=== PATIENT | male | born 1995 | race Caucasian/White ===

== ENCOUNTER 2019-10-04 23:24 | Emergency (ER) | payer BC ==
[2019-10-04 23:38] VITALS: BP 124/75; PULSE 80; TEMP 97.6; BMI 25.7
--- NOTE | 2019-10-04 23:54 | PDOC ---
History of Present Illness - General Chief Complaint: Substance Abuse Stated Complaint: substance abuse Time Seen by Provider: 10/04/19 23:54 History Source: Patient Exam Limitations: No Limitations Past History - Medical History Allergies/Adverse Reactions: Allergies Allergy/AdvReac Type Severity Reaction Status Date / Time No Known Allergies Allergy Verified 10/04/19 23:38 Home Medications: Ambulatory Orders NK [No Known Home Medication] 10/04/19 - Psycho-Social/Smoking History Smoking History: Never smoked Have you smoked in the past 12 months: No Information on smoking cessation initiated: No - Substance Abuse Hx (Audit-C & DAST Scrn) How often the patient has a drink containing alcohol: Never Number of drinks the patient has on a typical day: 1 or 2 How often the patient has six or more drinks on one occasion: Never Score: In Men: 4 or > Positive; In Women: 3 or > Positive: 0 Screen Result (Pos requires Nsg. Audit-10AR): Negative In the last yr the pt used illegal drug/Rx for NonMed reason: No Score: Yes response is considered Positive: 0 Screen Result (Positive result requires Nsg. DAST-10): Negative *Physical Exam - Vital Signs Last Vital Signs Temp Pulse Resp BP Pulse Ox 97.6 F 80 16 124/75 93 L 10/04/19 23:29 10/04/19 23:29 10/04/19 23:29 10/04/19 23:29 10/04/19 23:29
[2019-10-05] MEDS ORDERED: SODIUM CHLORIDE 1,000 ML IV SCH (00:30)
[2019-10-05 01:20] LABS: BASO % 0.1 % (0-2.0); EOS % 0.2 % (0-4.5); HEMATOCRIT 44.3 % (35.4-49); LYMPH % 6.3 % (8-40); MCH 30.7 pg (25.7-33.7); MCHC 33.8 g/dl (32.0-35.9); MEAN CELL VOLUME 90.8 fl (80-96); MEAN PLT VOLUME 8.2 fl (7.5-11.1); MONO % 10.8 % (3.8-10.2); NEUT % 82.6 % (42.8-82.8); PLATELET COUNT 232 K/MM3 (134-434); RBC 4.88 M/mm3 (4.00-5.60); RDW 13.4 % (11.9-15.9); WHITE BLOOD COUNT 13.3 K/mm3 (4.0-10.0)
--- NOTE | 2019-10-05 01:56 | PDOC ---
History of Present Illness - General Chief Complaint: Substance Abuse Stated Complaint: substance abuse Time Seen by Provider: 10/04/19 23:54 - History of Present Illness Initial Comments: 10/05/19 01:56 24 year old man with no pmhx who was brought in by his father after he appeared somewhat lethargic. The patient endorsed eating a pot brownie but denies any other substance use. He reports feeling tired. ROS GENERAL/CONSTITUTIONAL: No fever or chills. No weakness. HEAD, EYES, EARS, NOSE AND THROAT: No change in vision. No ear pain or discharge. No sore throat. CARDIOVASCULAR: No chest pain or shortness of breath RESPIRATORY: No cough, wheezing, or hemoptysis. GASTROINTESTINAL: No nausea, vomiting, diarrhea or constipation. GENITOURINARY: No dysuria, frequency, or change in urination. MUSCULOSKELETAL: No joint or muscle swelling or pain. No neck or back pain. SKIN: No rash NEUROLOGIC: No headache, vertigo, loss of consciousness, or change in strength/sensation. ENDOCRINE: No increased thirst. No abnormal weight change HEMATOLOGIC/LYMPHATIC: No anemia, easy bleeding, or history of blood clots. ALLERGIC/IMMUNOLOGIC: No hives or skin allergy. PE GENERAL: Awake, alert, fully oriented, in no acute distress HEAD: No signs of trauma, normocephalic, atraumatic EYES: PERRLA, EOMI, sclera anicteric, conjunctiva clear ENT: oropharynx clear without exudates. Moist mucosa NECK: Normal ROM, supple LUNGS: No distress, speaks full sentences, clear to auscultation bilaterally HEART: Regular rate and rhythm, normal S1 and S2, no murmurs, rubs or gallops, peripheral pulses normal and equal bilaterally. ABDOMEN: Soft, nontender. No guarding, no rebound. No masses EXTREMITIES : Normal inspection, Normal range of motion, no edema. No clubbing or cyanosis. NEUROLOGICAL: Cranial nerves II through XII grossly intact. Normal speech, no focal sensorimotor deficits SKIN: Warm, Dry, normal turgor, no rashes or lesions noted Assessment and Plan 24 year old man with no pmhx who was brought in by his father after he appeared somewhat lethargic. The patient endorsed eating a pot brownie but denies any other substance use. Patient with substance use. cbc, cmp, utox - wnl, pos for marijuana Will correctional counselor/case manager and advise to avoid drug abuse. Kyleigh Tavarez, PGY3 Emergency Medicine Past History - Medical History Allergies/Adverse Reactions: Allergies Allergy/AdvReac Type Severity Reaction Status Date / Time No Known Allergies Allergy Verified 10/04/19 23:38 Home Medications: Ambulatory Orders NK [No Known Home Medication] 10/04/19 - Psycho-Social/Smoking History Smoking History: Never smoked Have you smoked in the past 12 months: No Information on smoking cessation initiated: No - Substance Abuse Hx (Audit-C & DAST Scrn) How often the patient has a drink containing alcohol: Never Number of drinks the patient has on a typical day: 1 or 2 How often the patient has six or more drinks on one occasion: Never Score: In Men: 4 or > Positive; In Women: 3 or > Positive: 0 Screen Result (Pos requires Nsg. Audit-10AR): Negative In the last yr the pt used illegal drug/Rx for NonMed reason: No Score: Yes response is considered Positive: 0 Screen Result (Positive result requires Nsg. DAST-10): Negative *Physical Exam - Vital Signs Last Vital Signs Temp Pulse Resp BP Pulse Ox 97.6 F 80 16 124/75 93 L 10/04/19 23:29 10/04/19 23:29 10/04/19 23:29 10/04/19 23:29 10/04/19 23:29 ED Treatment Course - LABORATORY CBC & Chemistry Diagram: 10/05/19 00:55 10/05/19 00:55 - ADDITIONAL ORDERS Additional order review: 10/05/19 00:55 RBC 4.88 MCV 90.8 MCHC 33.8 RDW 13.4 MPV 8.2 Neutrophils % 82.6 Lymphocytes % 6.3 L Monocytes % 10.8 H Eosinophils % 0.2 Basophils % 0.1 Discharge - Discharge Information Problems reviewed: Yes Clinical Impression/Diagnosis: Accidental cannabis overdose Condition: Improved Disposition: HOME - Follow up/Referral - Patient Discharge Instructions Additional Instructions: You were seen in the ER for marijuana use Your were evaluated with labwork which were normal Please refrain from any drug use. Take rest and return to the ER if you develop any concerning symptoms, chest pain, shortness of breath or loss of consciousness. - Post Discharge Activity
[2019-10-05 01:57] LABS: ALBUMIN 4.1 g/dl (3.4-5.0); BLOOD UREA NITROGEN 25.9 mg/dL (7-18); CALCIUM 9.3 mg/dL (8.5-10.1); CREATININE 1.3 mg/dL (0.55-1.3); POTASSIUM 4.4 mmol/L (3.5-5.1); TOT PROT 7.1 g/dl (6.4-8.2)
[2019-10-05 03:04] LABS: COCAINE, UR NEGATIVE ng/ml (CUTOFF=300); OPIATES, URI NEGATIVE ng/ml (CUTOFF=300); URINE BARBITURATES NEGATIVE ng/ml (CUTOFF=200)
[2019-10-05 03:19] LABS: METHADONE, UR NEGATIVE ng/ml (CUTOFF=300); PHENCYCLIDINE,URINE NEGATIVE ng/ml (CUTOFF=25); URINE AMPHETAMINES NEGATIVE ng/ml (CUTOFF=500); URINE BENZODIAZEPINES NEGATIVE ng/ml (CUTOFF=200)
--- NOTE | 2019-10-05 21:06 | PDOC ---
Documentation entered by Lucretia Colon SCRIBE, acting as scribe for Vangie Joseph MD. Vangie Joseph MD: This documentation has been prepared by the Darlene dawson Sydney, SCRIBE, under my direction and personally reviewed by me in its entirety. I confirm that the documentation accurately reflects all work, treatment, procedures, and medical decision making performed by me. Attending Attestation - Resident Resident Name: DarienKyleigh salguero - ED Attending Attestation I have performed the following: I have examined & evaluated the patient, The case was reviewed & discussed with the resident, I agree w/resident's findings & plan, Exceptions are as noted - HPI HPI: 10/16/19 22:00 Agree with resident exam - Physicial Exam PE: 10/05/19 01:02 GENERAL: Well-appearing, well-nourished. No apparent distress. HEENT: Normocephalic, atraumatic. PERRL, EOM intact. CARDIOVASCULAR: Normal S1, S2. Regular rate and rhythm. PULMONARY: Clear to auscultation bilaterally. ABDOMEN: Soft, non-distended, non-tender. EXTREMITIES: Normal ROM in all four extremities. No gross deformities. SKIN: Warm, dry. No rash NEUROLOGICAL: No focal neurological deficits. - Medical Decision Making 10/17/19 04:36 stable for d/c home Pt is feeling better with treatment in the ER Discharge - Discharge Information Problems reviewed: Yes Clinical Impression/Diagnosis: Accidental cannabis overdose Condition: Improved Disposition: HOME - Follow up/Referral - Patient Discharge Instructions Additional Instructions: You were seen in the ER for marijuana use Your were evaluated with labwork which were normal Please refrain from any drug use. Take rest and return to the ER if you develop any concerning symptoms, chest pain, shortness of breath or loss of consciousness. - Post Discharge Activity
--- NOTE | 2019-10-06 18:26 | EKG ---
Test Reason : Blood Pressure : / mmHG Vent. Rate : 076 BPM Atrial Rate : 076 BPM P-R Int : 138 ms QRS Dur : 090 ms QT Int : 382 ms P-R-T Axes : 070 074 023 degrees QTc Int : 429 ms NORMAL SINUS RHYTHM NORMAL ECG NO PREVIOUS ECGS AVAILABLE Confirmed by KEVIN AMARO MD ([id number]) on 10/06/2019 6:26:26 PM Referred By: Confirmed By:KEVIN AMARO MD
== END 2019-10-05 03:01 | disposition home or self-care (01) ==
LOC: JER 23:24
DX: T40.7X1A Poisoning by cannabis (derivatives), accidental (unintentional), initial encounter (principal)
CPT/HCPCS: 36415; 80053; 80307; 85025; 93005; 93010; 99284-25